=== PATIENT | female | born 1975 | race Caucasian/White ===

== ENCOUNTER 2017-09-27 09:39 | Day surgery (SDC) | payer BC, OTHER ==
[2017-08-16 09:12] VITALS: BMI 28.0
--- NOTE | 2017-08-29 17:11 | DIAGNOSTIC IMAGING REPORT ---
CHEST 2 VIEWS ROUTINE CLINICAL HISTORY: Preoperative evaluation. COMPARISON STUDY: No previous studies for comparison. FINDINGS: The lung volumes are normal. No pneumothorax or pleural effusion is noted. Cardiac size is normal. Mediastinal contours are normal. There is no evidence for pulmonary edema. No consolidation is identified. IMPRESSION: No acute cardiopulmonary findings. Electronically signed by: Tate Wadsworth M.D. 08/29/2017 5:09 PM Dictated Date/Time: 08/29/2017 5:09 PM
--- NOTE | 2017-09-26 22:53 | History and Physical ---
History & Physical Date Sep 26, 2017. Chief Complaint left hindfoot pain History of Present Illness The patient is a 42 year old female with complaints of chronic left foot pain. She was treated conservatively for a worsening flat foot deformity and hindfoot DJD. She failed conservative management and is now being set up for surgical tx. Past Medical/Surgical History PMH: Spine problems, Hx of skin cancer Past surgical hx: , laparoscopic procedure in 2006, cyst removal from uterus Family hx: noncontributory. Social hx: No smoking. Allergies Coded Allergies: Amoxicillin (Verified Allergy, Unknown, RASH, 08/16/17) Home Medications Scheduled Cholecalciferol (Vitamin D3), Unknown Dose PO QAM Fish Oil (Kelley-3), 1 CAP PO QAM Laivytltolq-Higfsfbtosp-Bmw C- (Glucosamine Chondroitin), 2 CAP PO QAM Loratadine (Claritin), 10 MG PO QAM Multivitamin (Multivitamin), 1 TAB PO QAM Psyllium (Metamucil), Unknown Dose PO QAM Physical Examination Skin: warm/dry, no rash Eyes: normal inspection ENT: normal ENT inspection Head: normocephalic, atraumatic Neck: supple, no adenopathy, trachea midline Respiratory/Chest: lungs clear, normal breath sounds, no respiratory distress Cardiovascular: regular rate, rhythm Abdomen / GI: normal bowel sounds, non tender Extremities: + pertinent finding (Left ankle: pes planovalgus deformity. Tender at the medial and lateral hindfoot. Decreased ROM with inversion and eversion. Decreased dorsiflexion LLE. ) Neurologic/Psych: no motor/sensory deficits, alert, oriented x 3 Diagnosis Left hindfoot DJD Left achilles contracture Plan of Treatment The patient will be scheduled for a left triple arthrodesis, percutaneous tendoachilles lengthening. All potential risks, benefits, complications, alternatives, and rehab have been discussed with the patient and she wishes to proceed. She will be scheduled for 09.26.17 with ASA 81 mg BID x 4 wks for DVT prophylaxis.
[~2017-09-27] VITALS: Ht 170.2 cm; Wt 81.8 kg
[~2017-09-27 09:39] MED LIST: BUPIVACAINE 0.5 % 5 MG/1 ML PF 10ML VIAL ONE; CHOL1000 PO; CLR10 PO; GLUC1CAP35 PO; LACTATED RINGER'S 1000ML 1,000 ML IV SCH; MULT-506 PO; OMEG10007 PO; PSYL48.59 PO; ROPIVACAINE 0.5% 5 MG/ML 30 ML VIAL ONE
[2017-09-27] MEDS ORDERED: ATROPINE SULFATE 0.1 MG/ML 5ML SYR IV PRN (09:45)
[2017-09-27] MEDS ORDERED: LABETALOL HCL IV 5 MG/ML 20ML IV PRN (09:45)
[2017-09-27] MEDS ORDERED: HYDROmorphone INJ 0.5 MG/0.5 ML SYR IV PRN (09:45)
[2017-09-27] MEDS ORDERED: EpHEDrine SULFATE INJ 50 MG/ML AMP IV PRN (09:45)
[2017-09-27] MEDS ORDERED: ONDANSETRON INJ 2 MG/ML 2 ML VIAL IV PRN (09:45)
[2017-09-27] MEDS ORDERED: MEPERIDINE HCL 25 MG/ML CARP IV PRN (09:45)
[2017-09-27] MEDS ORDERED: FENTANYL CITRATE INJ 50 MCG/1 ML 2 ML VIAL IV PRN (09:45)
[2017-09-27 10:12] VITALS: BP 130/61; PULSE 68; TEMP 37.1; O2SAT 94; Ht 170.2 cm; Wt 81.8 kg
[2017-09-27] MEDS ORDERED: FENTANYL CITRATE INJ 50 MCG/1 ML 2 ML VIAL ONE ×3 (10:56→15:52)
[2017-09-27] MEDS ORDERED: MIDAZOLAM HCL 1 MG/ML 2ML VIAL ONE ×2 (10:56→12:02)
--- NOTE | 2017-09-27 11:36 | History & Physical Bridge Note ---
H&P Re-Evaluation Bridge Note: I have examined the patient, reviewed the History & Physical and in the interval since the performance of the History & Physical I have noted the following changes of clinical significance: No changes noted
[2017-09-27] MEDS ORDERED: CEFAZOLIN SOD 2000MG/15 ML IV PUSH ONE (11:43)
[2017-09-27] MEDS ORDERED: BACITRACIN 50000 UNIT VIAL ONE (12:12)
[2017-09-27] MEDS ORDERED: ONDANSETRON INJ 2 MG/ML 2 ML VIAL ONE (13:12)
[2017-09-27] MEDS ORDERED: LIDOCAINE HCL 2% 2 ML VIAL (20MG/ML) ONE (13:12)
[2017-09-27] MEDS ORDERED: DEXAMETHASONE SOD INJ 4 MG/ML VIAL ONE (13:12)
[2017-09-27] MEDS ORDERED: PROPOFOL IV EMULSION 10 MG/ML 20 ML VIAL ONE (13:12)
[2017-09-27] MEDS ORDERED: MoRPHine SULFATE 2 MG/ML CARP ONE (13:41)
--- NOTE | 2017-09-27 15:39 | DIAGNOSTIC IMAGING REPORT ---
L FOOT 2 VIEWS CLINICAL HISTORY: 42 years-old Female presenting with LT TRIPLE ARTHRODESIS. TECHNIQUE: 3 fluoroscopic image(s) recorded as part of an intraoperative procedure. COMPARISON: None. FINDINGS/IMPRESSION: For lack screw fixation through the hindfoot noted. Arthrodesis of the subtalar joints as well as the talonavicular and calcaneocuboid articulations. Ankle mortise intact. Please see surgical report for further details. Fluoroscopy dosage (mGy): 1.11. Fluoroscopy time: 28.4 seconds. Number or time of fluoroscopic spot images: 0. Electronically signed by: Eduardo Chiu M.D. 09/27/2017 3:38 PM Dictated Date/Time: 09/27/2017 3:37 PM
--- NOTE | 2017-09-27 16:03 | [facility] Post Operative Brief Note ---
Immediate Operative Summary Operative Date Sep 27, 2017. Pre-Operative Diagnosis Left Hindfoot Degenerative Joint Disease, Achilles Contracture Post-Operative Diagnosis Left Hindfoot Degenerative Joint Disease, Achilles Contracture, Exostosis medial navicular Procedure(s) Performed Left Foot Triple Arthrodesis, Percutaneous Tendon Achilles Lengthening, Exostectomy Medial Navicular Surgeon Dr Iqbal Watch Crystal Cutter Surgeon(s) Henok Cox Estimated Blood Loss 20cc Findings Consistent with Post-Op Diagnosis Specimens None as per surgeon Drains HV x1 Anesthesia Type General Regional Complication(s) none Disposition Accompanied Pt To Recover: no Disposition: Recovery Room / PACU
[2017-09-27] MEDS ORDERED: ASPI81TA28 PO (16:09)
[2017-09-27] MEDS ORDERED: OXYC-57 PO (16:09)
[2017-09-27] MEDS ORDERED: PROM25TA9 PO (16:09)
--- NOTE | 2017-09-27 16:16 | Discharge Instructions ---
Discharge Instructions Date of Service Sep 27, 2017. Admission Reason for Admission: Left Ankle/Foot Osteoarthritis, Joint Pain Discharge Discharge Diagnosis / Problem: left hindfoot arthritis Discharge Goals Goal(s): Decrease discomfort, Improve function Activity Recommendations Activity Limitations: per Instructions/Follow-up section Weightbearing Status: Left non-weightbearing . Instructions / Follow-Up Instructions / Follow-Up ACTIVITY RECOMMENDATIONS: Limitations: No weight bearing to affected limb at all times. SPECIAL CARE INSTRUCTIONS: * The hemovac drain in your foot will remain in place until 0900 on 09.28.17. You should empty the canister every 8 hours until that time. You will reattach the canister then recharge it by compressing the canister and closing valve. When 0900 comes, remove tape from near the great toe and unwind the drain from your great toe. Pull the drain directly away from the toes and it will come out from the dorsal aspect of the foot beneath the AGUEDA wrap. * Take Aspirin 81 mg every 12 hours for 6 weeks for prophylaxis for blood clots. * Some drainage onto the dressing is normal and is no cause for alarm. * Some swelling is natural especially after walking. * When resting, keep your foot elevated above the level of your heart. * Call [facility] if you notice: -Increased drainage -Fever over 101 degrees F -Severe constant pain BANDAGE: * Leave bandage/cast in place unless otherwise directed. * Keep bandage/cast dry at all times. FOLLOW UP VISIT WITH DR. LARA If appointment is not already scheduled: Please call [facility] after you get home today to schedule a follow-up appointment for [address] Lara at . Current Hospital Diet Patient's current hospital diet: Discharge Diet Recommended Diet: Regular Diet Procedures Procedures Performed: Left Foot Triple Arthrodesis, Percutaneous Tendon Achilles Lengthening, Exostectomy Medial Navicular Pending Studies Studies pending at discharge: no Medical Emergencies . Who to Call and When: Medical Emergencies: If at any time you feel your situation is an emergency, please call [phone] immediately. . Non-Emergent Contact Non-Emergency issues call your: Surgeon Call Non-Emergent contact if: temperature is above 101, your pain is not controlled, your pain is worsening . "Provider Documentation" section prepared by Henok Cox. .
[2017-09-27] MEDS ORDERED: OXYCODONE/ACETAMINOPHEN 5-325 TAB PO PRN (16:30)
--- NOTE | 2017-09-27 16:41 | DIAGNOSTIC IMAGING REPORT ---
L FOOT MIN 3 VIEWS ROUTINE CLINICAL HISTORY: post op postoperative evaluation COMPARISON: None. DISCUSSION: Patient is in casting material. There is evidence for a left ankle fusion. There is a moderate pars planus deformity of the ankle. Expected soft tissue postoperative change IMPRESSION: Operative changes consistent with a left ankle fusion combined with a pre-existing pars planus deformity. The above report was generated using voice recognition software. It may contain grammatical, syntax or spelling errors. Electronically signed by: Angel Costa M.D. 09/27/2017 4:39 PM Dictated Date/Time: 09/27/2017 4:38 PM
--- NOTE | 2017-09-27 16:42 | DIAGNOSTIC IMAGING REPORT ---
L ANKLE MIN 3 VIEWS ROUTINE CLINICAL HISTORY: post op postoperative evaluation COMPARISON: None. DISCUSSION: Findings consistent with an ankle fusion. Pars planus configuration. Expected soft tissue postoperative change. IMPRESSION: Operative changes consistent with an ankle fusion. The above report was generated using voice recognition software. It may contain grammatical, syntax or spelling errors. Electronically signed by: Angel Costa M.D. 09/27/2017 4:41 PM Dictated Date/Time: 09/27/2017 4:40 PM
--- NOTE | 2017-09-27 16:45 | Anesthesiology Progress Note ---
Anesthesia Post Op Note Date & Time Sep 27, 2017 at 16:45 Vital Signs Pain Intensity: 0 Vital Signs Past 12 Hours Date Time Temp Pulse Resp B/P (MAP) Pulse Ox O2 Delivery O2 Flow Rate FiO2 09/27/17 16:40 89 10 121/76 100 Room Air 09/27/17 16:30 93 12 129/79 100 Room Air 09/27/17 16:20 94 12 127/77 100 Oxymask 10 09/27/17 16:10 92 14 124/74 100 Oxymask 10 09/27/17 16:06 36.6 100 16 123/78 100 Oxymask 10 09/27/17 10:12 37.1 68 20 130/61 (84) 94 Room Air Notes Mental Status: alert / awake / arousable, participated in evaluation Pt Amnestic to Procedure: Yes Nausea / Vomiting: adequately controlled Pain: adequately controlled Airway Patency, RR, SpO2: stable & adequate BP & HR: stable & adequate Hydration State: stable & adequate Anesthetic Complications: no major complications apparent Anesthetic Complications: Block is functioning well.
--- NOTE | 2017-09-27 16:46 | OPERATIVE REPORT ---
DATE OF OPERATION: 09/27/2017 PREOPERATIVE DIAGNOSES: 1. Left hindfoot degenerative joint disease. 2. Achilles tendon contracture. 3. Exostosis of the medial navicular. POSTOPERATIVE DIAGNOSES: 1. Left hindfoot degenerative joint disease. 2. Achilles contracture. 3. Exostosis medial navicular. PROCEDURE: 1. Left triple arthrodesis with application allograft. 2. Percutaneous tendon Achilles lengthening. 3. Exostectomy of the medial navicular. SURGEON: Dr. Iqbal. BICYCLE FITTER: Henok Cox PA-C. Due to the complex nature of the procedure, the entire surgery was performed with the itinerant teacher assistant of Henok Cox PA-C. The dental laboratory assistant, under direct supervision, was involved in the actual performance of all aspects of the surgical procedure including hemostasis, tissue retraction and incision, instrument management, patient positioning, and wound closure. ANESTHESIA: General LMA with popliteal block and adductor canal block. SPECIMENS: None. DRAINS: Hemovac x1. COMPLICATIONS: None. BLOOD LOSS: 20 mL PERTINENT HISTORY: This is a 42-year-old female with persistent ongoing and worsening left hindfoot pain and deformity. 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 She attempted and failed shoe wear modification, activity modification, anti-inflammatories, rest, topical anti-inflammatories and steroid injections. She failed all measures. Had radiographically and CAT scan confirmed degenerative arthritis of the hindfoot with a significant pes planus deformity and an associated Achilles tendon contracture. The patient was then scheduled for surgery as indicated. All potential risks, benefits, complications, alternatives, rehab, potential for incomplete relief of symptoms, need for further surgery, DVT, PE, , persistent pain, swelling, scarring, weakness, neurovascular injury, wound complications, hardware failure, nonunion, malunion, and bone fracture were discussed with the patient. Patient decided to proceed with the procedure as indicated. DESCRIPTION OF PROCEDURE: The patient was taken to the Operating Suite, placed supine on the Operating Room table, after consent and identification of the proper operative site, the patient was anesthetized. LMA was placed. Tourniquet was placed high on the left lower extremity. Left lower extremity was then sterilely prepped and draped in the usual fashion. Exsanguinated with an Esmarch bandage and tourniquet inflated to 350 mmHg. Next, the foot was held in dorsiflexion and a three-part percutaneous incision was made with an 11-blade scalpel to lengthen the Achilles tendon using standard technique. Next, the stab incisions were then closed using interrupted skin sharmin. Next, the 15-blade scalpel was used to make an incision from the distal aspect of the fibula to the base of the fourth metatarsal. The incision was deepened through subcutaneous tissue and meticulous hemostasis was obtained with electrocautery. Subcutaneous nerves were identified, retracted and protected. The extensor digitorum brevis was identified and was sharply elevated from the anterior process of the calcaneus revealing the sinus tarsi. Next, the sinus tarsi was debrided carefully with a rongeur and 15-blade scalpel. A cervical lamina division sales manager was placed in the sinus tarsi opening the subtalar joint. Subtalar joint was then prepared with the use of a curette and rongeur to resect the articular surfaces down to subchondral bleeding bone. Irrigation was performed with sterile normal saline and then 2-mm drill bit was used to further prepare the joint surface with multiple drill holes in both surfaces of the subtalar joint and a small osteotome and mallet were used to fish scale the joint surfaces to increase surface area and bleeding. Next, the calcaneocuboid joint was then entered with the 15-blade scalpel, debrided of soft tissue and then a lamina division sales manager was placed in the joint opening it for preparation with a curette and rongeur to remove any articular surface down to subchondral bleeding bone. Next, the 2-mm drill bit was used to further prepare the joint with multiple drill holes into the joint and then a small osteotome and mallet were used to fish scale the joint. Next, the 15-blade was used to make an incision from the distal aspect of the tibia to the base of the naviculocuneiform joint. The incision was deepened through subcutaneous tissue. Meticulous hemostasis obtained with electrocautery. A Weitlaner retractor was placed in the medial incision. The greater saphenous vein was identified, retracted and protected. The capsule of the talonavicular joint was then entered sharply with a 15-blade scalpel and elevated both superior and inferiorly. A small Asha was placed on the neck of the talus and further soft tissue elevation was performed with the 15-blade scalpel until the talonavicular joint was clearly visualized. There was significant hyperostosis of the medial navicular. Found impinge on the soft tissues and at this point osteotome and mallet were then used to perform an exostectomy of the medial navicular. A rongeur and 15blade scalpel were used to remove approximately 1 x 1 cm bony fragment which was then carefully debrided and then morselized with a rongeur for later use as autograft in the case.The articular surface was then debrided with curette and rongeur then cervical lamina division sales manager was placed in the joint. Next, it was irrigated with sterile normal saline and a 2-mm drill bit was used to make multiple holes in the joint surfaces and fish scaling was performed with a small osteotome and mallet. Next, the medial and lateral incisions were irrigated with sterile normal saline and the joint surfaces were then aligned appropriately based on alignment of the lower extremity and the kneecap. Subtalar joint was aligned and then a 7.3-mm cannulated guidepin was driven from the superior aspect of the talus across the subtalar joint into the calcaneus under fluoroscopic control. Next, an appropriate length 7.3-mm short-thread screw was placed under fluoroscopic control and countersunk slightly. Next, the guidepin was removed. Next, 1.25-mm guidepins x 2 were used to stabilize the talonavicular joint in appropriate alignment and then the calcaneocuboid joint was then stabilized with appropriate alignment under fluoroscopic control. Next, appropriate length of 4-mm short-thread cannulated screws were placed across the talonavicular and calcaneocuboid joints respectively under fluoroscopic control. All guidepins were removed. Wounds were irrigated with sterile normal saline and bone graft was then packed in and around the subtalar, talonavicular and calcaneocuboid joints which was comprised of 30 cc of cancellous bone chips. A 10-Slovenian single lumen Hemovac drain was then placed in the lateral aspect of the wound exiting dorsolaterally and the extensor digitorum brevis then closed back to its origin with interrupted 2-0 Vicryl sutures. The talonavicular joint capsule was closed using 2-0 Vicryl sutures. The dermis was closed using buried interrupted 3-0 Vicryl sutures medially and laterally and then skin incisions were closed using 4-0 Nylon sutures. A sterile compressive dressing and bulky Gustavo-Esquivel plaster splint was applied, overwrapped with an Zack wrap. The tourniquet was released. DISPOSITION: Patient awakened and taken to Recovery in stable condition. I attest to the content of the Intraoperative Record and any orders documented therein. Any exceptions are noted below. HARDYD
[2017-09-27 16:50] VITALS: BP 126/73; PULSE 90; TEMP 36.7; O2SAT 98
[2017-09-27 17:20] VITALS: BP 123/72; PULSE 72; O2SAT 97
[2017-09-27 17:56] VITALS: BP 146/80; PULSE 73; TEMP 36.6; O2SAT 97
[2017-09-28] MEDS ORDERED: CEFAZOLIN SOD 2000MG/15 ML IV PUSH IV ONE (06:00)
== END 2017-09-27 18:40 | disposition home or self-care (01) ==
LOC: C.ACU 09:39
PROVIDERS: ATTEND Orthopaedic Surgery Sports Medicine
DX: M19.072 Primary osteoarthritis, left ankle and foot (principal); Q66.89 Other specified congenital deformities of feet; M84.872 Other disorders of continuity of bone, left ankle and foot; M19.90 Unspecified osteoarthritis, unspecified site